=== PATIENT | female | born 1945 | race Caucasian/White ===

== ENCOUNTER 2016-03-20 11:45 | Outpatient (CLI) | payer MEDICARE, OTHER | END 2016-03-20 11:46 | disposition home or self-care (01) | DX: R30.0 Dysuria (principal) ==

== ENCOUNTER 2017-03-12 15:48 | Outpatient (CLI) | payer MEDICARE, OTHER ==
--- NOTE | 2017-03-13 15:19 | Mammography Report ---
DATE OF SERVICE: 03/12/2017 DIGITAL SCREENING MAMMOGRAM: 03/12/2017 CLINICAL INDICATION: A 71-year-old, for screening. COMPARISON: 03/2015, 11/2009, 10/2008, 03/2007. TECHNIQUE: Routine CC and MLO projections were obtained of the breasts. FINDINGS: The breasts demonstrate fatty replacement bilaterally. Intramammary lymph nodes are stable. Coarse and punctate, typically benign calcifications are present. No suspicious masses, clustered microcalcifications, or regions of architectural distortion are identified. IMPRESSION: BENIGN FINDINGS. RECOMMENDATION: ROUTINE ANNUAL SCREENING UNLESS OTHERWISE CLINICALLY INDICATED. BIRADS CATEGORY 2 BENIGN FINDINGS. STANDARD QUALIFYING STATEMENTS: 1. This examination was reviewed with the aid of Computer-Aided Detection (CAD). 2. A negative or benign imaging report should not delay biopsy if clinically suspicious findings are present. Consider surgical consultation if warranted. More than 5% of cancers are not identified by imaging. 3. Dense breasts may obscure an underlying neoplasm. TD: 03/13/2017 16:18
== END 2017-03-12 15:49 | disposition home or self-care (01) ==
LOC: DI 15:48
PROVIDERS: ATTEND Physician Assistant Medical
DX: Z12.31 Encounter for screening mammogram for malignant neoplasm of breast (principal)
CPT/HCPCS: 77067

== ENCOUNTER 2017-03-25 13:01 | Outpatient (CLI) | payer MEDICARE, OTHER ==
--- NOTE | 2017-03-26 08:26 | DEXA Report ---
DEXA SCAN: 03/25/2017 CLINICAL INDICATION: Osteopenia. TECHNIQUE: Dual energy x-ray absorptiometry (DXA) was performed on a [employer] system. Regions measured are the AP spine, femoral neck, and, if needed, forearm. COMPARISON: None. In accordance with the International Society for Clinical Densitometry (ISCD) guidelines, data from previous exams may be reanalyzed using current recommendations and techniques. This is done to allow a more accurate basis for comparison with the current study. FINDINGS The data for the lumbar spine is as follows: REGION BMD (g/cm/cm) T-SCORE Z-SCORE L1 1.206 0.6 1.8 L2 1.309 0.9 2.0 L3 1.452 2.1 3.2 L4 1.451 2.1 3.2 TOTAL 1.369 1.6 2.7 NOTE: All evaluable vertebrae are used for classification. The data for the hip is as follows: REGION BMD (g/cm/cm) T-SCORE Z-SCORE Neck 0.795 -1.7 -0.4 TOTAL 0.898 -0.9 0.3 NOTE: The femoral neck or total proximal femur, whichever is lowest, is used for classification. IMPRESSION: THE WHO CLASSIFICATION BASED ON THE INTERNATIONAL REFERENCE STANDARD IS OSTEOPENIA (REFERENCE LEFT FEMORAL NECK). THE FRACTURE RISK IS INCREASED. RECOMMENDATION: Patients with diagnosis of osteoporosis or osteopenia should have regular bone mineral density assessment. For those eligible for Medicare, routine testing is allowed once every 2 years. Testing frequency can be increased for patients who have rapidly progressing disease or for those who are receiving medical therapy to restore bone mass. COMMENT: World Health Organization (WHO) definitions for osteoporosis and osteopenia: NORMAL BMD: T-score at 1.0 or higher, fracture risk is low. OSTEOPENIA BMD: T-score between 1.0 and -2.5, fracture risk is increased. OSTEOPOROSIS BMD: T-score at 2.5 or lower, fracture risk high. National Osteoporosis Foundation recommends: 1. Obtain adequate dietary calcium (at least 1200 mg per day) and vitamin D (400 -800 international units per day). 2. Participate, as appropriate, in regular weightbearing and muscle- strengthening exercise. 3. Avoid tobacco use and reduce alcohol and caffeine intake. 4. For more detailed information see the website at www.NOF.org. TD: 03/25/2017 15:20 MTDD
== END 2017-03-25 13:02 | disposition home or self-care (01) ==
LOC: DI 13:01
PROVIDERS: ATTEND Physician Assistant Medical
DX: M85.88 Other specified disorders of bone density and structure, other site (principal)
CPT/HCPCS: 77080

== ENCOUNTER 2017-08-03 15:50 | Outpatient (CLI) | payer OTHER, MEDICARE | END 2017-08-03 15:51 | disposition critical access hospital (66) | LOC: EMS 15:50 | PROVIDERS: ATTEND Surgery | DX: M54.2 Cervicalgia (principal); R51 Headache; V49.40XA Driver injured in collision with unspecified motor vehicles in traffic accident, initial encounter; Y92.410 Unspecified street and highway as the place of occurrence of the external cause | CPT/HCPCS: A0425; A0429 ==

== ENCOUNTER 2017-08-03 16:18 | Emergency (ER) | payer OTHER, MEDICARE ==
[2017-08-03] MEDS ORDERED: ACETAMINOPHEN 325 MG TABLET PO STA (16:27)
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
[2017-08-03] MEDS ORDERED: LIDOCAINE PATCH 5% TOP PRN (18:36)
[2017-08-03 18:44] VITALS: BP 127/85
== END 2017-08-03 18:44 | disposition home or self-care (01) ==
LOC: EDBD → EDUNIT# → ED 16:18
DX: S13.4XXA Sprain of ligaments of cervical spine, initial encounter (principal); V49.49XA Driver injured in collision with other motor vehicles in traffic accident, initial encounter; Y92.410 Unspecified street and highway as the place of occurrence of the external cause; Z79.82 Long term (current) use of aspirin
CPT/HCPCS: 70450; 71046; 72125; 99283; A9270

== ENCOUNTER 2019-02-18 11:39 | Emergency (ER) | payer MEDICARE, OTHER ==
[2019-02-18] MEDS ORDERED: BUFFERED LIDOCAINE 10 ML SYRINGE SUBQ STA (12:30)
--- NOTE | 2019-02-18 12:32 | ED Physician Documentation ---
PD HPI UPPER EXT INJURY - Stated complaint Stated Complaint: LT FINGER LAC/FALL - Chief complaint Chief Complaint: Laceration - History obtained from History obtained from: Patient (73-year-old woman who is up-to-date on tetanus fell this morning and has a blunt force laceration of the palm of the left, dominant hand. No other injuries.) Review of Systems Constitutional: reports: Reviewed and negative Nose: reports: Reviewed and negative Throat: reports: Reviewed and negative Cardiac: reports: Reviewed and negative PD PAST MEDICAL HISTORY - Past Medical History Cardiovascular: PR - Past Surgical History Past Surgical History: No - Present Medications Home Medications: Ambulatory Orders Medication Instructions Recorded Confirmed Aspirin [Aspirin EC] 81 mg PO DAILYWM 08/03/17 08/03/17 Atorvastatin Calcium 20 mg PO QPM 08/03/17 08/03/17 Calcium Carbonate/Vitamin D3 2 tab PO DAILY 08/03/17 08/03/17 [Calcium 600 + Vit D 400 Tablet] Cholecalciferol [Vitamin D3] 5,000 unit PO DAILY 08/03/17 08/03/17 Lidocaine Patch 5% [Lidoderm Patch] 1 each TOP DAILY PRN #10 patch 08/03/17 Nitroglycerin [Nitrostat] 0.4 mg SL Q5MIN PRN 08/03/17 08/03/17 Progesterone, Micronized 120 mg PO DAILY 08/03/17 08/03/17 [Progesterone] Thyroid,Pork [Nature-Throid] 16.25 mg PO QPM 08/03/17 08/03/17 Thyroid,Pork [Nature-Throid] 65 mg PO DAILY 08/03/17 08/03/17 - Allergies Allergies/Adverse Reactions: Allergies Allergy/AdvReac Type Severity Reaction Status Date / Time No Known Drug Allergies Allergy Verified 02/18/19 11:51 - Social History Does the pt smoke?: No Smoking Status: Never smoker Does the pt drink ETOH?: No Does the pt have substance abuse?: No - Immunizations Immunizations are current?: Yes PD ED PE NORMAL - Vitals Vital signs reviewed: Yes - General General: Alert and oriented X 3, No acute distress - Extremities Extremities: Other (There is a 3 cm L-shaped laceration on the palm of the left hand under the MCP of the fifth digit. She has full range of motion. Very mild bony tenderness posteriorly. Normal neurovascular function at the tips of the digits, and normal flexor tendon strength.) Results - Vitals Vitals: Vital Signs - 24 hr 02/18/19 02/18/19 11:52 12:47 Temperature 36.5 C 36.9 C Heart Rate 60 61 Respiratory 14 16 Rate Blood Pressure 134/68 H 138/71 H O2 Saturation 96 96 Oxygen O2 Source Room air Procedures - Laceration (location) L hand Length in cm: 3 Wound type: Curved Neurovascular status: Sensory intact, Motor intact, Vascular intact Tendon involvement: Tendon intact Anesthesia: Lidocaine 1%, With bicarb Wound Preparation: Irrigated copiously NS Skin layer closure: Nylon, Interrupted, Size #-0 - enter number (4-0), Sutures - enter # (6) Other: Tetanus UTD Complexity: Simple PD MEDICAL DECISION MAKING - ED course ED course: I recommended an x-ray of the left hand to rule out fracture which the patient refused. Departure - Departure Clinical Impression: Laceration of left hand Qualifiers: Encounter type: initial encounter Foreign body presence: without foreign body Qualified Code(s): S61.412A - Laceration without foreign body of left hand, initial encounter Condition: Good Record reviewed to determine appropriate education?: Yes Instructions: ED Laceration Hand Comments: Come back for any signs of infection which would include: Redness, swelling, drainage, increased pain, or fevers. You can wash it soap and water. Keep it covered and moist with bacitracin ointment which is available over the counter; avoid neosporin. Follow-up with your physician in 14 days for suture removal. Your blood pressure was elevated today on check into the emergency department. This does not mean that you have hypertension, it is a common phenomenon to come to the emergency department and have elevated blood pressure. I recommend that you see your primary care physician within the week to have it rechecked when you are feeling better.
[2019-02-18 12:49] VITALS: BP 138/71
== END 2019-02-18 13:32 | disposition home or self-care (01) ==
LOC: ED 11:39
DX: S61.412A Laceration without foreign body of left hand, initial encounter (principal); W18.30XA Fall on same level, unspecified, initial encounter; R03.0 Elevated blood-pressure reading, without diagnosis of hypertension; Z79.82 Long term (current) use of aspirin
CPT/HCPCS: 12002; 99283